=== PATIENT | female | born 1950 | race Caucasian/White ===

== ENCOUNTER 2017-06-02 16:17 | Emergency (ER) | payer MEDICARE ==
[2017-06-02 16:35] VITALS: RESP 18
[2017-06-02] MEDS ORDERED: HYDROcodone/APAP 5-325MG 1 EACH TAB PO STA (16:59)
--- NOTE | 2017-06-02 17:12 | ED ---
Fall HPI - General Chief Complaint: Fall Stated Complaint: Injury/ Arm Pain Time Seen by Provider: 06/02/17 16:54 Source: patient Mode of arrival: ambulatory - History of Present Illness Initial Comments: This 66-year-old white female presents with a complaint of a fall. She apparently was in her garage when she tripped, fell, and landed on her right shoulder. She is complaining of pain to her right humerus and right shoulder. It is worse with any movement of her right arm. She also complains of a small abrasion present to her left leg. She denies any other injuries or complaints. She denies any head injury, neck pain, back pain, chest pain, or abdominal pain. She denies any previous injuries to this area. She states that the pain is fairly significant. - Related Data Home Medications Medication Instructions Recorded Confirmed Atorvastatin [Lipitor] 40 mg PO DAILY 06/02/17 06/02/17 Escitalopram [Lexapro] 20 mg PO DAILY 06/02/17 06/02/17 buPROPion XL [Wellbutrin Xl] 150 mg PO DAILY 06/02/17 06/02/17 Previous Rx's Medication Instructions Recorded Hydrocodone/Acetaminophen [[place] 1 - 2 each PO Q4HR PRN #20 tab 06/02/17 5-325] Allergies Allergy/AdvReac Type Severity Reaction Status Date / Time aspirin [From Percodan] Allergy Unknown Verified 06/02/17 17:40 celecoxib [From Celebrex] Allergy Unknown Verified 06/02/17 17:39 oxycodone [From Percodan] Allergy Unknown Verified 06/02/17 17:40 shellfish derived [Shellfish] Allergy Unknown Verified 06/02/17 17:39 Sulfa (Sulfonamide Allergy Unknown Verified 06/02/17 17:39 Antibiotics) Review of Systems ROS Statement: Those systems with pertinent positive or pertinent negative responses have been documented in the HPI. ROS Other: All systems not noted in ROS Statement are negative. Past Medical History Past Medical History: Hyperlipidemia History of Any Multi-Drug Resistant Organisms: None Reported Past Surgical History: Appendectomy, Bladder Surgery, Hysterectomy, Tonsillectomy Past Psychological History: Depression Smoking Status: Never smoker Past Alcohol Use History: Occasional Past Drug Use History: None Reported General Exam - General Exam Comments Initial Comments: GENERAL: The patient is well nourished and well hydrated. VITAL SIGNS: Heart rate, blood pressure, respiratory rate reviewed as recorded in nurse's notes. EYES: Pupils are round and reactive. Extraocular movements are intact. No conjunctival / lid redness or swelling. ENT: No external evidence of injury, swelling, or ecchymosis. Airway is patent. Throat is clear. NECK: Nontender. No swelling or evidence of injury. No subcutaneous emphysema. Trachea is midline. No thyroid mass. HEART: Regular rate and rhythm. Good peripheral pulses. LUNGS/CHEST: Breath sounds clear and equal bilaterally. No rales, rhonchi, or wheezes. No ecchymosis, subcutaneous emphysema, or tenderness. ABDOMEN: Abdomen soft without tenderness. No palpable masses or organomegaly. No peritoneal signs. No abdominal wall swelling or ecchymosis. EXTREMITIES: There is tenderness noted to the right humerus and right shoulder. There is pain with any attempts at range of motion of the right shoulder. There is no elbow, forearm, or hand tenderness. Normal muscle tone and function. No thoracolumbar tenderness. NEUROLOGIC: Sensation is grossly intact. Cranial nerve exam reveals face is symmetrical, tongue is midline, speech is clear. SKIN: There is a mild abrasion noted to the left anterior gibbons. No induration or masses noted. PSYCHIATRIC: Alert and oriented. Appropriate behavior and judgment. Limitations: no limitations Course Vital Signs 06/02/17 16:31 Temperature 98.5 F Pulse Rate 77 Respiratory 18 Rate Blood Pressure 165/75 O2 Sat by Pulse 100 Oximetry Medical Decision Making - Medical Decision Making The patient was seen and examined. All diagnostics are reviewed. She received 2 [place] 5/325 for pain. The x-ray showed a fracture of the greater tuberosity of the right humerus. She is placed in a sling. She is feeling well on recheck. It is felt as though she would benefit from follow-up with orthopedics. She is instructed to utilize ice, utilize the sling, utilize the [place] as needed, and follow-up with orthopedics. A copy of the radiology report is given to her as requested. She leaves in no severe distress. Narcotic medication morning's were discussed. Disposition Clinical Impression: Fall, Hypertension, Humeral fracture Disposition: HOME SELF-CARE Condition: Good Instructions: Hypertension (ED) Additional Instructions: Please use the sling for only 5 days. Prescriptions: Hydrocodone/Acetaminophen [[place] 5-325] 1 - 2 each PO Q4HR PRN #20 tab PRN Reason: Pain Referrals: None,Stated [Primary Care Provider] - 1-2 days Russell Jarquin MD [STAFF PHYSICIAN] - 06/07/17 Time of Disposition: 17:46
--- NOTE | 2017-06-02 17:37 | XR ---
EXAMINATION TYPE: XR shoulder complete RT, XR humerus RT DATE OF EXAM: 06/02/2017 CLINICAL HISTORY: pain TECHNIQUE: Three views of the right shoulder are obtained. COMPARISON: None FINDINGS: There is a nondisplaced fracture greater humeral tuberosity. The acromioclavicular and esteban ohumeral joint spaces appear moderately narrowed.. The visualized ribs are intact and unremarkable. IMPRESSION: 1. There is a nondisplaced fracture greater humeral tuberosity. EXAMINATION TYPE: XR shoulder complete RT, XR humerus RT DATE OF EXAM: 06/02/2017 CLINICAL HISTORY: pain COMPARISON: NONE TECHNIQUE: Frontal and lateral images of the right humerus are obtained. FINDINGS: There is no acute fracture/dislocation evident. The joint spaces appear within normal limi ts. The overlying soft tissue appears unremarkable. IMPRESSION: There is no acute fracture or dislocation.ICD 10 NO FRACTURE, INITIAL EVALUATION
[2017-06-02 17:59] VITALS: BP 145/77; PULSE 74; TEMP 98.2
== END 2017-06-02 17:59 | disposition home or self-care (01) ==
LOC: EC 16:17
DX: S42.251A Displaced fracture of greater tuberosity of right humerus, initial encounter for closed fracture (principal); I10 Essential (primary) hypertension; S80.812A Abrasion, left lower leg, initial encounter; E78.5 Hyperlipidemia, unspecified; F32.9 Major depressive disorder, single episode, unspecified; Z79.899 Other long term (current) drug therapy; Z88.6 Allergy status to analgesic agent; Z88.5 Allergy status to narcotic agent; Z91.013 Allergy to seafood; Z88.2 Allergy status to sulfonamides; W01.0XXA Fall on same level from slipping, tripping and stumbling without subsequent striking against object, initial encounter; Y92.59 Other trade areas as the place of occurrence of the external cause
CPT/HCPCS: 99283

== ENCOUNTER → 2017-06-09 | Outpatient (CLI) | payer MEDICARE, OTHER ==
--- NOTE | 2017-06-09 08:51 | CT ---
EXAMINATION TYPE: CT shoulder RT wo con DATE OF EXAM: 06/09/2017 COMPARISON: Radiograph 06/02/2017 HISTORY: 66-year-old female with right shoulder pain, Fracture right humerus TECHNIQUE: Contiguous axial scanning of the shoulder without IV contrast. Coronal and sagittal recons tructions performed. 3-D reconstructions generated on a dedicated independent workstation. CT DLP: 280.7 mGycm Automated exposure control for dose reduction was used. FINDINGS: There is a slightly offset, mildly comminuted fracture of the greater tuberosity with the dominant fr acture fragment measuring up to 2.9 cm. Mild degenerative changes at the AC joint. No additional acute fracture, subluxation, or dislocation is seen. No significant bursal effusion or glenoid humeral joint effusion. Visualized right hemithorax is sridhar r. IMPRESSION: SLIGHTLY OFFSET, MILDLY COMMINUTED FRACTURE OF THE GREATER TUBEROSITY. THE DOMINANT FRACTURE FRAGMENT MEASURES 2.9 CM. THIS IS ESSENTIALLY A FUNCTIONAL ROTATOR CUFF TEAR. NO ADDITIONAL ACUTE OSSEOUS ABN ORMALITY SEEN.
== END | disposition home or self-care (01) ==
LOC: RADCTMAIN 08:05
PROVIDERS: ATTEND Orthopaedic Surgery
DX: S42.251A Displaced fracture of greater tuberosity of right humerus, initial encounter for closed fracture (principal); S46.011A Strain of muscle(s) and tendon(s) of the rotator cuff of right shoulder, initial encounter